=== PATIENT | male | born 1950 | race Caucasian/White ===

== ENCOUNTER 2017-03-28 09:09 | Inpatient (IN) | payer MEDICARE ==
[~2017-03-28] VITALS: Ht 165.1 cm; Wt 66.7 kg
[2017-03-28] VITALS (8 sets, daily range): BP systolic 92–131; BP diastolic 56–77
[~2017-03-28 09:09] MED LIST: ALKA-SELTZER H1 EACH PO; ASPIRIN325 PO; ATORVASTATIN CA40 MG PO; CHILDREN'S ASPI81 M1 PO; COLACE100 MG PO; ENOXAPARIN40 MG/0.1 SUBQ; IBUPROFEN 400400 M2 PO; LISINOPRIL5 MG PO; MILK OF MA2400 MG/10 PO; NICOTINE PATCH TRANSDERM; PEPCID20 MG PO; PRENATAL PO; TYLENOL325 MG PO; VITAMIN B-1100 M1 PO; XANAX 0.5 MG0.5 MG PO
[2017-03-28 11:04] LABS: ABSOLUTE BASOPHILS 0.1 thou/uL (0.0-0.2); ABSOLUTE EOSINOPHILS 0.3 thou/uL (0.0-0.7); ABSOLUTE LYMPHOCYTES 2.8 thou/uL (0.8-5.3); ABSOLUTE MONOCYTES 0.9 thou/uL (0.0-1.2); ABSOLUTE NEUTROPHILS 4.1 thou/uL (1.6-8.1); BASOPHILS 0.8 %; EOSINOPHILS 3.9 %; HEMATOCRIT 46.8 % (42.0-52.0); HEMOGLOBIN 15.9 gm/dL (14.0-18.0); LYMPHOCYTES 34.7 %; MCH 33.1 pg (26.0-34.0); MCV 97.3 fL (80.0-100.0); NUCLEATED RBCS 0 /100WBC; PLATELET COUNT* 211 thou/uL (150-400); POLYS 49.6 %; RBC 4.81 mil/uL (4.50-6.00); RDW-CV 12.9 % (10.5-14.5); WBC 8.2 thou/uL (4.0-11.0)
[2017-03-28 11:11] LABS: CALCIUM 8.7 mg/dL (8.5-10.1); POTASSIUM 3.6 mmol/L (3.5-5.1)
[2017-03-28 17:52] LABS: HEMATOCRIT 27.8 % (42.0-52.0); MCH 33.3 pg (26.0-34.0); MCHC 34.1 g/dL (28.0-37.0); MCV 97.8 fL (80.0-100.0); MPV 7.6 fl. (7.2-11.1); RBC 2.85 mil/uL (4.50-6.00); RDW-CV 12.6 % (10.5-14.5); WBC 7.7 thou/uL (4.0-11.0)
[2017-03-28 17:54] LABS: HEMOGLOBIN 9.5 gm/dL (14.0-18.0)
[2017-03-28 18:05] LABS: POTASSIUM 2.3 mmol/L (3.5-5.1)
--- NOTE | 2017-03-28 18:34 | NUR ---
PT ARRIVED TO ROOM 006 VIA BED FROM PACU AT 1750. PT IS DROWSY BUT ORIENTED X4. ART LINE TO LEFT WRIST. CRITICAL POTASSIUM UPON ADMISSION TO ROOM. POTASSIUM BEING MADE BY PHARMACY BUT WILL BE 30 MINUTES OR SO. PAIN MINIMAL IN THROAT, DENIES NEED FOR INTERVENTION. PLEASE SEE ADMISSION FOR ASSESSMENT. VSS. WILL CONTINUE TO MONITOR.
--- NOTE | 2017-03-28 23:15 | NUR ---
PT REFUSING TO WEAR O2/CO2 DETECTOR. EXPLAINED REASONS FOR USE TO THE BEST OF MY ABILITY. SPOKE TO RT TO GIVE MORE ACCURATE INFORMATION IN HOES PT WILL CONTINUE TO WEAR.
--- NOTE | 2017-03-28 23:27 | NUR ---
RT IN ROOM WITH PT, PT REFUSES TO WEAR O2/CO2 DETECTOR. PT ALSO REFUSING TO WEAR SCD'S AND SAT MONITOR. PT AGREED TO WEAR SCD'S AND SAT MONITOR. O2/CO2 TAKEN OFF BY PT. PT REQUESTING ANOTHER XANAX DUE TO INSOMNIA RELATED TO MONITOR NOISES.
--- NOTE | 2017-03-28 23:39 | NUR ---
DR IVY PAGED PER PT REQUEST.
[2017-03-29] VITALS (11 sets, daily range): BP systolic 96–149; BP diastolic 57–99
--- NOTE | 2017-03-29 09:48 | NUR ---
ASSUMED CARE OF PATIENT ARTLINE MARILU, HEARTBURN RELIEVED BY MYLANTA. PT UP IN ROOM AWAITING VASCULAR SURGERY, DENIES PAIN. PROGRESSING.
--- NOTE | 2017-03-29 12:55 | NUR ---
PATIENT SEEN BY DR CHRISTOPHER. DISCHARGED HOME PER PRIVATE CAR INSTRUCTINS GIVEN AND ACKNOWLEDGED. DENIES PAIN OR DISTRESS.
--- NOTE | 2017-03-29 16:02 | OP ---
[facility] [address] [place] [address] OPERATIVE REPORT Name: RONALDO MCLAUGHLIN Room: [address] IN M.R.#: [id number] Admission: 03/28/17 Attend Phys: Cora Vitale Discharge: 03/29/17 Date of : 50 Report #: [id number] THIS REPORT FOR: //name// CC: Sulaiman Das DATE OF SERVICE: 03/28/2017 PREOPERATIVE DIAGNOSIS: Symptomatic right carotid stenosis. POSTOPERATIVE DIAGNOSIS: Symptomatic right carotid stenosis. SURGEON: Sulaiman Ovalles DO. RETAIL ANALYST: None. PROCEDURE: Right carotid endarterectomy. ANESTHESIA: Intraoperative carotid duplex. ESTIMATED BLOOD LOSS: 100 mL. SPECIMEN: Plaque. COMPLICATIONS: None. CONDITION: Stable. DISPOSITION: ICU. INDICATIONS FOR THE PROCEDURE AND CONSENT: The patient is a 66-year-old male with symptomatic right carotid stenosis resulted in a left-sided hemiparesis. The patient does have residual weakness of his left arm and leg, has completed awaiting. The patient has had no additional TIAs since his hospitalization. Risks and benefits again of right carotid endarterectomy including penumbra, infection and recurrent symptoms, stroke, heart attack and . The patient wished to proceed, was consented and scheduled. PROCEDURE IN DETAIL: After timeout was performed, the patient was placed in supine position with sterile prep and drape of the anterior neck and chest wall. Semi-transverse incision was made anterior to the sternocleidomastoid and dissection carried out sharply with Bovie electrocautery and Metzenbaum scissors. Common carotid artery was identified and encircled with Rumel tourniquet. The internal carotid artery was identified, external carotid artery was identified, both were dissected sharply and controlled with vessel loops. [address] [address] OPERATIVE REPORT Name: RONALDO MCLAUGHLIN Room: [address]#: [id number] Admission: 03/28/17 Attend Phys: Cora Vitale Discharge: 03/29/17 Date of : 50 Report #: [id number] The patient was then systemically heparinized with 6000 units of heparin. The internal carotid artery clamp was applied first and the external was controlled with its vessel loop and then, controlled with Rumel tourniquet. The posterior attachments of carotid artery were freed to allow better exposure. The 11 blade and Mercado scissors then used to make a longitudinal arteriotomy opposite the external carotid artery and the arteriotomy extended with Mercado scissors into the normal superior intima was identified. A #12 shunt was then advanced into the internal carotid artery without difficulty and then into the common and controlled with Rumel tourniquet. Blood flow was noted through the shunt. The plaque elevator and forceps were then used to perform endarterectomy everting the external carotid artery. The distal intima feathered nicely and was tested with heparinized saline and noted to not have any movement. The endarterectomized portion was then meticulously cleaned of forceps removing all debris and the external carotid artery was everted to remove any plaque near the origin. The bovine pericardial patch was then selected once I was satisfied that there was no additional anatomic concern for debris or flap. It was sutured in place with 6-0 Prolene. Prior to complete closure, the shunt was removed reapplying clamps. The endarterectomized portion was copiously irrigated. The patch was then closed completely with 6-0 Prolene. The blood flow was restored of the external carotid artery first and then ultimately up the internal carotid artery. An arterial duplex was then performed, both B-mode and waveforms and color flow Doppler was performed. This demonstrated appropriate waveforms for the common internal and external carotid arteries without significant elevation. No flaps or anatomic concerns were identified on B-mode imaging. Being satisfied with repair, the patient was reversed using 50 units of protamine as the heparin has just recently been redosed. The wound was then copiously irrigated, noted to be hemostatic. Leti was applied to the wound and edges as precautions. It was then irrigated out with antibiotic saline. Wound was then closed in layers using 2-0 Vicryl, 3-0 Vicryl and 4-0 Monocryl suture and Dermabond dressing was applied. The patient tolerated the procedure well. All lap, needle and instrument counts were correct. The patient was able to move his left arm and left leg prior to being transferred to the bed and transferred to PACU. <ELECTRONICALLY SIGNED> By: Sulaiman Ovalles DO 03/29/17 1602 1720 [id number] Ovalles DO /nt
--- NOTE | 2017-03-30 14:35 | S ---
[address] [address] SURGICAL PATH RPT PROCEDURE Name: RAHEEL MCLAUGHLIN Room: [address] ..#: [id number] Admission: 03/28/17 Date of : 50 Discharge: 03/29/17 Report #: [id number] Path Case #: [id number] PATHOLOGY REPORT COLLECTION DATE: 03/28/2017 RECEIVED DATE: 03/28/2017 SUBMITTING PHYS: Dr. Sulaiman Ovalles OTHER PHYS: Dr. Michele Thao SPECIMEN(S) RECEIVED: A.Right carotid plaque * * * * * * * * * * * * FINAL DIAGNOSIS: Right carotid plaque: - Fibrointimal atherosclerotic plaque with calcification. (EVAN:mml; 03/30/2017) PATHOLOGIST: Arnol Akers M.D. REPORT ELECTRONICALLY SIGNED BY: Arnol Akers M.D. DATE/TIME: 03/30/2017 14:35 * * * * * * * * * * * * GROSS PATHOLOGY: The specimen is received in formalin labeled "Raheel Mclaughlin right carotid plaque". Received is a tubular segment of partially calcified yellow-becerra rubbery tissue measuring 2.3 x 1.0 x 1.0 cm in greatest dimensions. The specimen is submitted representatively in cassette A1, following decalcification. (CAA; 03/29/2017) CLINICAL HISTORY: Right carotid stenosis INITIAL CPT CODE(S): A; 14129, 95280 Professional services performed by [facility] at [facility], [address] [place] [address]. Technical services performed by [facility] at [address] [place] [address], [address], [place], [place] [address]. [facility] [address] [address] [place] [address] SURGICAL PATH RPT PROCEDURE Name: RAHEEL MCLAUGHLIN Room: [address] IN Christina.Gerson.#: [id number] Admission: 03/28/17 Date of : 50 Discharge: 03/29/17 Report #: [id number] Path Case #: [id number] [place] [address] PHONE: [phone] DIRECTOR: Rolo Farrell M.D. * * * END OF REPORT * * *
[2017-03-30] MEDS ORDERED: NORCO 5-325 TA1 EACH PO (15:12)
== END 2017-03-29 12:50 | disposition home or self-care (01) | DRG 38 ==
LOC: M.PRE 09:09 → M.TBA 10:33 → M.ICU 10:33 → M.PRE 03-29 09:01 → M.ICU 03-29 12:50 → M.PRE 03-29 15:07
PROVIDERS: Surgery; ADMIT Internal Medicine
PROC: 03CH0ZZ Extirpation of Matter from Right Common Carotid Artery, Open Approach (ICD-10-PCS; principal; 2017-03-28)
DX: I65.21 Occlusion and stenosis of right carotid artery (principal); I69.351 Hemiplegia and hemiparesis following cerebral infarction affecting right dominant side; I10 Essential (primary) hypertension; E78.5 Hyperlipidemia, unspecified; E87.6 Hypokalemia; Z88.6 Allergy status to analgesic agent; Z88.1 Allergy status to other antibiotic agents; Z88.0 Allergy status to penicillin; Z88.2 Allergy status to sulfonamides; Z88.8 Allergy status to other drugs, medicaments and biological substances; Z90.49 Acquired absence of other specified parts of digestive tract; Z79.899 Other long term (current) drug therapy

== ENCOUNTER 2017-03-30 14:58 | Observation (INO) | payer MEDICARE ==
[~2017-03-30] VITALS: Ht 160 cm; Wt 68.9 kg
--- NOTE | ~2017-03-30 | H ---
[address] [address] HISTORY AND PHYSICAL Name: RONALDO MCLAUGHLIN Room: [address] Jaquelin Billingsley#: [id number] Admission: 03/30/17 Attend Phys: Donaldo Subramanian MD Discharge: 03/31/17 Date of : 50 Report #: [id number] THIS REPORT FOR: //name// For History and Physical please refer to Dr. Lee's consultation note in the patient's medical record. By: [facility]7Medical Records Staff TERRI /PARKER
[2017-03-30 15:03] VITALS: BP 171/90
--- NOTE | 2017-03-30 15:05 | NUR ---
DR NARAYANAN IN ROOM AT THIS TIME PERFORMING [facility]
[2017-03-30] MEDS ORDERED: NORCO 5-325 TA1 EACH PO (15:12)
[2017-03-30 15:57] LABS: ANION GAP 6 mmol/L (7-16); BUN 16 mg/dL (7-18); CALCIUM 9.1 mg/dL (8.5-10.1); CHLORIDE 103 mmol/L (98-107); CO2 29 mmol/L (21-32); GLUCOSE 94 mg/dL (70-99); POTASSIUM 4.3 mmol/L (3.5-5.1); SODIUM 138 mmol/L (136-145)
[2017-03-30 16:12] LABS: ALBUMIN 3.5 g/dL (3.4-5.0); ALKALINE PHOSPHATASE 86 U/L (46-116); SGOT 28 U/L (15-37); SGPT 32 U/L (30-65); TOTAL BILIRUBIN 0.2 mg/dL (<0.1-1.0); TOTAL PROTEIN 6.3 g/dL (6.4-8.2); TROPONIN-I LEVEL <0.06 ng/mL (<0.06)
--- NOTE | 2017-03-30 16:30 | NUR ---
PT WALKED WITH THIS NURSE AROUND ED HALLWAY, STEADY GAIT, INDEPENDENT IN AMBULATION.
[2017-03-30 16:39] LABS: ABSOLUTE BASOPHILS 0.1 thou/uL (0.0-0.2); ABSOLUTE EOSINOPHILS 0.2 thou/uL (0.0-0.7); ABSOLUTE LYMPHOCYTES 2.8 thou/uL (0.8-5.3); ABSOLUTE MONOCYTES 1.3 thou/uL (0.0-1.2); ABSOLUTE NEUTROPHILS 7.2 thou/uL (1.6-8.1); BASOPHILS 0.6 %; HEMATOCRIT 43.3 % (42.0-52.0); LYMPHOCYTES 24.3 %; MCH 32.8 pg (26.0-34.0); MCV 99.4 fL (80.0-100.0); MONOCYTES 11.5 %; MPV 8.1 fl. (7.2-11.1); NUCLEATED RBCS 0 /100WBC; PLATELET COUNT* 164 thou/uL (150-400); POLYS 61.6 %; RBC 4.35 mil/uL (4.50-6.00); RDW-CV 13.1 % (10.5-14.5); WBC 11.7 thou/uL (4.0-11.0)
[2017-03-30 16:42] LABS: HEMOGLOBIN 14.3 gm/dL (14.0-18.0)
[2017-03-30 18:42] VITALS: BP 171/90
[2017-03-30 18:52] VITALS: BP 176/89
--- NOTE | 2017-03-30 19:05 | NUR ---
VSS, ASSUMED CARE OF PT [facility] ER AT 1835, PT PLACE ON TELE MONITOR AN VITALS CHECKED, PT DENINES ANY PAIN AT THIS TIME HE IS TRACING SR ON THE MONITOR AND IS A&O4 ON RA AND UP WITH STAND BY, PT NEEDS UA
[2017-03-30 20:39] VITALS: BP 155/83
[2017-03-31] VITALS: BP 165/85
[2017-03-31 04:00] VITALS: BP 170/90
[2017-03-31 05:25] LABS: CALCIUM 8.8 mg/dL (8.5-10.1); CREATININE 1.6 mg/dL (0.6-1.3); MAGNESIUM 1.8 mg/dL (1.8-2.4); POTASSIUM 4.4 mmol/L (3.5-5.1)
--- NOTE | 2017-03-31 06:50 | NUR ---
PT IS ABLE TO COMMUNICATE NEEDS TO STAFF EFFECTIEVLY. HE HAS DENIED THE NEED FOR PAIN MEDICATION UP TO THIS TIME. POSSIBLE DISCHARGE LATER TODAY.
[2017-03-31 07:30] VITALS: BP 164/80
--- NOTE | 2017-03-31 09:40 | NUR ---
VSS, ASSUMED CARE IN THE AM, ASSESSMENT PERFORMED AND CHARTED, FALL PRECAUTIONS IN PLACE AND CALL LIGHT IN REACH, PT IS A&O4 AND IS UP WITH STAND BY, HAS LEFT SIDE WEAKNESS, ON RA AND TRACING SR ON THE MONITOR, PT STATES PAIN IN HIS NECK, HIS GOAL IS TO IMPOVE LEFT SIDE WEAKNESS AND [facility] SCORES, WILL FOLLOW WITH PLAN OF CARE.
--- NOTE | 2017-03-31 10:56 | EKG ---
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: : 1950 Requested By: Yamil Turner Order Number: [id number] MD: Buster Chatman Measurements Intervals [place] Rate: 89 P: 73 NC: 188 QRS: 27 QRSD: 80 T: 66 QT: 347 QTc: 423 Interpretive Statements Sinus rhythm septal q waves noted nonspecific st changes Compared to ECG 02/14/2017 04:48:59 no changes Electronically Signed On 03-31-2017 10:55:54 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
[2017-03-31 12:18] VITALS: BP 164/80
[2017-03-31 16:07] LABS: GLYCOHEMOGLOBIN (HGB A1C) 5.5 % (4.8-5.6)
--- NOTE | 2017-03-31 16:39 | NUR ---
VSS, RECIEVED D/C INSTRUCTION PROVITED D/C INSRUCTIONS AND FOLLOW UP APPOINTMENTS GIVEN, IV AND TELE MONITOR TAKEN OUT, FILLED OUT MEDICATION INSTRUCTIONS AND CHECKED CHART, PT REFUSES HOME HEALTH, ALL BELONGINGS GATHERED AND PLACED WITH PT, PT WAS TAKNE OUT VIA WHEEL CHAIR BY STAFF TO CAR. HOURLY ROUNDS COMPLETED,
== END 2017-03-31 17:25 | disposition home or self-care (01) ==
LOC: M.ERS 14:58 → M.TBA-ER 17:24 → M.2W 17:24
PROVIDERS: Emergency Medicine Emergency Medical Services; ADMIT Internal Medicine
DX: I65.21 Occlusion and stenosis of right carotid artery (principal); I10 Essential (primary) hypertension; E78.5 Hyperlipidemia, unspecified; N17.9 Acute kidney failure, unspecified; G81.94 Hemiplegia, unspecified affecting left nondominant side